=== PATIENT | male | born 2000 | race Native Hawaiian/Other Pacific Islander ===

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

== ENCOUNTER 2022-03-23 20:25 | Emergency (ER) | payer BC ==
[~2022-03-23] VITALS: Ht 185.4 cm; Wt 113.4 kg
[2022-03-23 21:15] LABS: PLATELET COUNT 354 K/uL (142-355)
[2022-03-23 21:24] LABS: POTASSIUM 3.6 mmol/L (3.6-5.2); SODIUM 137 mmol/L (136-145)
[2022-03-23 22:25] VITALS: BP 133/79
== END 2022-03-23 22:25 | disposition home or self-care (01) ==
LOC: ED 20:25
PROVIDERS: Emergency Medicine Emergency Medical Services
DX: J20.9 Acute bronchitis, unspecified (principal); M94.0 Chondrocostal junction syndrome [Tietze]
CPT/HCPCS: 36415; 80048; 83735; 84484; 85027; 85379; 87502; 87635; 93005; 96360; 96365; 99284; J0696; U0003